=== PATIENT | female | born 1955 | race Hispanic/Latino ===

== ENCOUNTER 2016-11-04 11:00 | Outpatient (CLI) | payer BC | END 2016-11-04 11:01 | disposition home or self-care (01) | LOC: SLR 11:00 | PROVIDERS: ATTEND Specialist | DX: G47.33 Obstructive sleep apnea (adult) (pediatric) (principal); E66.9 Obesity, unspecified | CPT/HCPCS: 95810 ==

== ENCOUNTER 2016-11-26 09:59 | Outpatient (CLI) | payer BC ==
--- NOTE | 2016-11-26 12:14 | Mammography Report ---
Bilateral digital screening mammogram with CAD. History: Breast cancer survivor status post left partial mastectomy and radiation therapy. Comparison study is dated December 03, 2015. Findings: The postsurgical and postradiation changes in the left breast are stable with no new suspicious findings on the left. The fibroglandular tissue on the right is also stable with no evidence of mass or distortion. No suspicious calcifications are seen. A few scattered microcalcifications are stable and appear benign. Impression: Stable benign findings including postradiation and postsurgical changes on the left. BI-RADS code: 2. Recommendation: Annual screening.
== END 2016-11-26 10:00 | disposition home or self-care (01) ==
LOC: MAMMO 09:59
PROVIDERS: ATTEND Family Medicine
DX: Z12.31 Encounter for screening mammogram for malignant neoplasm of breast (principal); Z90.12 Acquired absence of left breast and nipple
CPT/HCPCS: 77067; G0202

== ENCOUNTER 2016-11-28 11:00 | Outpatient (CLI) | payer BC | END 2016-11-28 11:01 | disposition home or self-care (01) | LOC: SLR 11:00 | PROVIDERS: ATTEND Specialist | DX: G47.33 Obstructive sleep apnea (adult) (pediatric) (principal); E78.00 Pure hypercholesterolemia, unspecified; I10 Essential (primary) hypertension; F32.9 Major depressive disorder, single episode, unspecified | CPT/HCPCS: 95811 ==

== ENCOUNTER 2016-12-02 07:59 | Outpatient (CLI) | payer BC ==
[2016-12-02] MEDS ORDERED: LEXISCAN IV ONE ×2 (09:23→09:34)
[2016-12-02 12:22] VITALS: BP 116/53
[2016-12-02] MEDS ORDERED: NACL 0.9% 1000 ML 1,000 ML ONE (12:49)
--- NOTE | 2016-12-03 04:40 | Treadmill Report ---
NUCLEAR PERFUSION STUDY DONE FOR PREOP IMAGING PROTOCOL: The patient received 10 mCi of Technetium 99m Tetrofosmin for resting image and 28 mCi of Technetium 99m Tetrofosmin for stress imaging. The imaging for the whole procedure was completed 30-90 minutes following the initial injection of Technetium 99m tetrofosmin. The SPECT imaging in the 180 degree arc was performed in the right anterior oblique projection. Computerized reconstruction of the images was performed for analysis. IMAGING RESULTS: Normal cavity size from stress to rest. Normal distribution of radionuclide in the anterior, inferior, septal, and apical regions. Gated SPECT, EF greater than 65% with no wall motion abnormality. The patient infused Lexiscan with no EKG changes. SUMMARY: 1. Negative Lexiscan EKG. 2. Normal rest and stress myocardial perfusion scan. No significant stress ischemia. No wall motion abnormality. Gated SPECT, EF greater than 65%. JOB# [id number] JOAN/ALLI
== END 2016-12-02 08:00 | disposition home or self-care (01) ==
LOC: ECHO 07:59
PROVIDERS: ATTEND Internal Medicine
DX: Z01.810 Encounter for preprocedural cardiovascular examination (principal); I08.1 Rheumatic disorders of both mitral and tricuspid valves
CPT/HCPCS: 78452; 93017; 93306; A9502; J2785; J7030

== ENCOUNTER 2017-02-06 15:31 | Outpatient (CLI) | payer BC ==
--- NOTE | 2017-02-07 10:35 | XRay Report ---
RIGHT HIP, 2 views: HISTORY: Right hip pain. The bony architecture is intact without evidence of fracture or dislocation. No significant soft tissue abnormality is seen. IMPRESSION: Normal right hip.
== END 2017-02-06 15:32 | disposition home or self-care (01) ==
LOC: XRAY 15:31
PROVIDERS: ATTEND Family Medicine
DX: M25.551 Pain in right hip (principal)

== ENCOUNTER 2017-06-11 13:40 | Outpatient (CLI) | payer BC ==
--- NOTE | 2017-06-12 13:59 | XRay Report ---
FINAL REPORT EXAM: XR SPINE LUMBOSACRAL 2-3V HISTORY: SACROILIAC JOINT DYSFUNCTION OF RIGHT SIDE/HERNIATED NUCLEUS PULP TECHNIQUE: The lumbar spine four views PRIORS: None. FINDINGS: There is multilevel [id number] lumbar degenerative disc disease and moderate facet arthropathy. There is mild intervertebral narrowing at L1-2 and L2-3 with minimal end-plate spurring. At L4-5 there [id number] disc space narrowing and mild anterolisthesis. Anterolisthesis is likely on the basis of moderate facet degenerative disease. There is moderate disc space narrowing with marginal spurring and facet arthropathy at L5-S1. There are aortoiliac atherosclerotic calcifications. IMPRESSION: Multilevel sbly-ok-zyodqsld degenerative disc disease, most notable at L4-5 and L5-S1. Multilevel facet arthropathy more notable in the lower lumbar spine. Mild anterolisthesis of L4 likely on the basis of this facet disease.
--- NOTE | 2017-06-12 14:01 | XRay Report ---
FINAL REPORT EXAM: XR PELVIS COMPLETE 3+V HISTORY: Sacroiliac joint dysfunction of right side/right hip pain. TECHNIQUE: AP pelvis and AP views of each hip PRIORS: None. FINDINGS: The pelvis is intact. There is no fracture seen. The SI joints are unremarkable. Hip joint spaces are mild narrowed bilaterally. There is mild acetabular marginal spurring. IMPRESSION: Mild degenerative changes involving both hips. No significant abnormality seen involving the pelvis or SI joints.
== END 2017-06-11 13:41 | disposition home or self-care (01) ==
LOC: XRAY 13:40
PROVIDERS: ATTEND Family Medicine
DX: M48.061 Spinal stenosis, lumbar region without neurogenic claudication (principal); M16.0 Bilateral primary osteoarthritis of hip; M53.87 Other specified dorsopathies, lumbosacral region; M53.3 Sacrococcygeal disorders, not elsewhere classified; M51.36 Other intervertebral disc degeneration, lumbar region; I70.0 Atherosclerosis of aorta
CPT/HCPCS: 72100; 72190

== ENCOUNTER 2017-06-25 12:09 | Outpatient (CLI) | payer BC ==
[2017-06-25 12:25] LABS: Amphetamine Screen,Urine PRESUMPTIVE NEGATIVE; Benzodiazepines Screen,Urine PRESUMPTIVE NEGATIVE; Cannabinoid Screen,Urine PRESUMPTIVE NEGATIVE; Cocaine Screen,Urine PRESUMPTIVE NEGATIVE; Methadone Screen,Urine PRESUMPTIVE NEGATIVE; Opiate Screen,Urine PRESUMPTIVE NEGATIVE
== END 2017-06-25 12:10 | disposition home or self-care (01) ==
LOC: LAB 12:09
PROVIDERS: ATTEND Family Medicine
DX: Z51.81 Encounter for therapeutic drug level monitoring (principal); I10 Essential (primary) hypertension; E78.00 Pure hypercholesterolemia, unspecified; F32.9 Major depressive disorder, single episode, unspecified; F41.9 Anxiety disorder, unspecified; Z79.899 Other long term (current) drug therapy
CPT/HCPCS: 80307

== ENCOUNTER 2017-10-01 14:53 | Outpatient (CLI) | payer BC ==
[2017-10-01 15:29] LABS: Amphetamine Screen,Urine PRESUMPTIVE NEGATIVE; Benzodiazepines Screen,Urine PRESUMPTIVE NEGATIVE; Cannabinoid Screen,Urine PRESUMPTIVE NEGATIVE; Cocaine Screen,Urine PRESUMPTIVE NEGATIVE; Methadone Screen,Urine PRESUMPTIVE NEGATIVE; Opiate Screen,Urine PRESUMPTIVE NEGATIVE
== END 2017-10-01 14:54 | disposition home or self-care (01) ==
LOC: LAB 14:53
PROVIDERS: ATTEND Family Medicine
DX: Z51.81 Encounter for therapeutic drug level monitoring (principal); I10 Essential (primary) hypertension; K21.9 Gastro-esophageal reflux disease without esophagitis; M19.90 Unspecified osteoarthritis, unspecified site; F32.9 Major depressive disorder, single episode, unspecified; F41.9 Anxiety disorder, unspecified; Z79.899 Other long term (current) drug therapy; Z90.49 Acquired absence of other specified parts of digestive tract
CPT/HCPCS: 80307

== ENCOUNTER 2017-12-04 09:32 | Outpatient (CLI) | payer BC ==
[2017-12-04 10:07] LABS: Basophils # (Auto) 0.1 K/mm3 (0.0-0.1); Eosinophils # (Auto) 0.3 K/mm3 (0.0-0.4); Eosinophils % (Auto) 3.4 % (0.0-4.3); Hematocrit 40.1 % (30.3-42.9); Hemoglobin 13.3 gm/dl (10.1-14.3); Lymphocytes # (Auto) 1.7 K/mm3 (1.2-5.4); Lymphocytes % (Auto) 23.2 % (13.4-35.0); Mean Corpuscular HGB Conc 33 % (30-34); Mean Corpuscular Hemoglobin 31 pg (28-32); Mean Corpuscular Volume 94 fl (79-97); Monocytes # (Auto) 0.4 K/mm3 (0.0-0.8); Platelet Count 201 K/mm3 (140-440); Red Blood Count 4.27 M/mm3 (3.65-5.03); Red Cell Distribution Width 12.6 % (13.2-15.2)
[2017-12-04 10:37] LABS: Alanine Aminotransferase 17 units/L (7-56); Albumin 4.2 g/dL (3.9-5); BUN/Creatinine Ratio 32; Blood Urea Nitrogen 19 mg/dL (7-17); Calcium 9.8 mg/dL (8.4-10.2); Hemolysis Index 0; Iron 46 ug/dL (37-170); Total Iron Binding Capacity 245 mcg/dL (250-450)
== END 2017-12-04 09:33 | disposition home or self-care (01) ==
LOC: LAB 09:32
PROVIDERS: ATTEND Specialist
DX: Z09 Encounter for follow-up examination after completed treatment for conditions other than malignant neoplasm (principal); K90.9 Intestinal malabsorption, unspecified; D50.9 Iron deficiency anemia, unspecified; E55.9 Vitamin D deficiency, unspecified; E61.8 Deficiency of other specified nutrient elements; I10 Essential (primary) hypertension; Z98.84 Bariatric surgery status; E78.00 Pure hypercholesterolemia, unspecified; M19.90 Unspecified osteoarthritis, unspecified site; Z90.49 Acquired absence of other specified parts of digestive tract; Z90.710 Acquired absence of both cervix and uterus; Z90.12 Acquired absence of left breast and nipple; Z87.891 Personal history of nicotine dependence
CPT/HCPCS: 36415; 80053; 82306; 82607; 83550; 83970; 84425; 85025

== ENCOUNTER 2017-12-21 11:12 | Outpatient (CLI) | payer BC ==
--- NOTE | 2017-12-21 12:34 | Mammography Report ---
BILATERAL DIGITAL SCREENING MAMMOGRAM WITH CAD: 12/21/17 11:12:00 CLINICAL: Routine screening.Breast cancer survivor status post left partial mastectomy . COMPARISON:11/26/16 FINDINGS: The breasts are heterogeneously dense, which may appear small masses. The left breast is smaller than the right with stable upper inner postsurgical scar. Scattered bilateral benign calcifications. No mass, suspicious architectural distortion or suspicious calcifications. IMPRESSION: No mammographic evidence of malignancy. BI-RADS CATEGORY: 2 -- Benign RECOMMENDATION: Routine mammographic screening in one year. COMMENT: Patient follow-up letters are generated via our [employer] application.
== END 2017-12-21 11:13 | disposition home or self-care (01) ==
LOC: MAMMO 11:12
PROVIDERS: ATTEND Family Medicine
DX: Z12.31 Encounter for screening mammogram for malignant neoplasm of breast (principal); E78.00 Pure hypercholesterolemia, unspecified; I10 Essential (primary) hypertension; K21.9 Gastro-esophageal reflux disease without esophagitis; M19.90 Unspecified osteoarthritis, unspecified site; Z90.710 Acquired absence of both cervix and uterus; Z90.49 Acquired absence of other specified parts of digestive tract; Z87.891 Personal history of nicotine dependence
CPT/HCPCS: 77067

== ENCOUNTER 2017-12-31 15:05 | Outpatient (CLI) | payer BC ==
[2017-12-31 16:18] LABS: Amphetamine Screen,Urine PRESUMPTIVE NEGATIVE; Benzodiazepines Screen,Urine PRESUMPTIVE NEGATIVE; Cannabinoid Screen,Urine PRESUMPTIVE NEGATIVE; Cocaine Screen,Urine PRESUMPTIVE NEGATIVE; Methadone Screen,Urine PRESUMPTIVE NEGATIVE; Opiate Screen,Urine PRESUMPTIVE NEGATIVE
== END 2017-12-31 15:06 | disposition home or self-care (01) ==
LOC: LAB 15:05
PROVIDERS: ATTEND Family Medicine
DX: Z51.81 Encounter for therapeutic drug level monitoring (principal); Z79.899 Other long term (current) drug therapy; Z88.8 Allergy status to other drugs, medicaments and biological substances
CPT/HCPCS: 80307